=== PATIENT | female | born 1995 | race Two or more races ===

== ENCOUNTER 2016-06-28 19:25 | Emergency (ER) | payer MEDICAID, OTHER ==
[~2016-06-28] VITALS: Ht 174 cm; Wt 74.0 kg
[2016-06-28 19:30] VITALS: Ht 174 cm; Wt 74.0 kg
[2016-06-28] MEDS ORDERED: SOD CHLORIDE 0.9% 1,000 ML IV ONE (20:00)
[2016-06-28] MEDS ORDERED: SOD CHLORIDE 0.9% 1,000 ML IV STA (20:00)
[2016-06-28] MEDS ORDERED: ONDANSETRON 4 MG INJ IV STA (20:00)
[2016-06-28] MEDS ORDERED: DOXY1TAB3 PO (20:02)
[2016-06-28 21:01] LABS: ADD SCAN DIFF NO
[2016-06-28 21:12] LABS: BASOPHILS % 0.4 % (0.0-2.0); EOSINOPHILS # 0.1 10^3/ul (0.0-0.5); EOSINOPHILS % 1.9 % (0.0-7.0); HEMATOCRIT 31.9 % (37.0-47.0); HEMOGLOBIN 10.3 g/dl (12.0-16.0); LYMPHOCYTES # 2.1 10^3/ul (0.8-2.9); LYMPHOCYTES % 30.4 % (15.0-51.0); MEAN CORPUSCULAR HEMOGLOBIN 27.5 pg (29.0-33.0); MEAN CORPUSCULAR HGB CONC 32.3 g/dl (32.0-37.0); MEAN CORPUSCULAR VOLUME 85.3 fl (82.0-101.0); MEAN PLATELET VOLUME 11.3 fl (7.4-10.4); MONOCYTE # 0.5 10^3/ul (0.3-0.9); MONOCYTES % 6.7 % (0.0-11.0); NEUTROPHIL # 4.1 10^3/ul (1.6-7.5); NEUTROPHILS % 60.2 % (39.0-77.0); PLATELET COUNT 238 10^3/UL (140-415); RED BLOOD COUNT 3.74 10^6/ul (4.20-5.40); RED CELL DISTRIBUTION WIDTH 13.7 % (11.5-14.5); WHITE BLOOD COUNT 6.9 10^3/ul (4.8-10.8)
[2016-06-28 21:29] LABS: ALBUMIN 3.4 g/dl (3.3-4.9)
[2016-06-28 21:30] LABS: POTASSIUM 3.8 mmol/L (3.5-5.1)
[2016-06-28 21:32] LABS: ALBUMIN/GLOBULIN RATIO 0.77; BILIRUBIN,INDIRECT 0.3 mg/dl (0-1.1); BILIRUBIN,TOTAL 0.3 mg/dl (0.2-1.3); CREATININE 0.48 mg/dl (0.44-1.00); TOTAL PROTEIN 7.8 g/dl (6.1-8.1)
[2016-06-28 21:33] LABS: CALCIUM 8.4 mg/dl (8.4-10.2)
[2016-06-28 22:37] LABS: ADD UMIC YES; URINE BILIRUBIN (Dip) 1+ (NEGATIVE); URINE BLOOD (Dip) 1+ (NEGATIVE); URINE COLOR YELLOW (YELLOW); URINE GLUCOSE (Dip) NEGATIVE (NEGATIVE); URINE KETONES (Dip) 3+ (NEGATIVE); URINE LEUKOCYTE ESTERASE (Dip) TRACE (NEGATIVE); URINE NITRITE (Dip) NEGATIVE (NEGATIVE); URINE UROBILINOGEN (Dip) 0.2 E.U./dL (0.1-1.0)
[2016-06-28 22:54] LABS: ICTOTEST NEGATIVE (NEGATIVE); URINE TOTAL PROTEIN (Dip) NEGATIVE (NEGATIVE)
[2016-06-28 22:56] LABS: BACTERIA,URINE MODERATE; MUCUS,URINE MANY; SQUAMOUS EPITHELIAL CELL,UR MODERATE
--- NOTE | 2016-06-28 23:28 | ERD ---
ER Documentation Chief Complaint Date/Time DATE: 06/28/16 TIME: 23:22 Chief Complaint vomiting X2 days,from home,DESTINEE RA 81,7-1/2 wks HPI This is a 21-year-old female who is 7 weeks is complaining of 2-3 days of severe vomiting. The patient has a history of hyperemesis gravidarum and has been seen here in the past and given Zofran ODT and had a sonogram demonstrating a live IUP. Patient states that she is not able to tolerate any sips of water fluids for the past 2 days has had decreased urine output. She is having no abdominal cramps no vaginal bleeding no pelvic pain no back pain no dysuria. No blood or bile in her vomit. No abdominal pain. The patient has tried Zofran tablets and Zofran ODT and is also tried diclegis. ROS All systems reviewed and are negative except as per history of present illness. Medications Home Meds Reported Medications Doxylamine/Pyridoxine Hcl (LEMUEL OCHOA 10-10 MG TABLET) 1 Each Tablet.dr, 2 TAB PO QHS, TAB 06/28/16 Allergies Allergies: Coded Allergies: No Known Allergy (Unverified , 06/28/16) PMhx/Soc Medical and Surgical Hx: pt denies Medical Hx, pt denies Surgical Hx Hx Alcohol Use: No Hx Substance Use: No Hx Tobacco Use: No Smoking Status: Never smoker FmHx Family History: No coronary disease Physical Exam Vitals Vital Signs Date Time Temp Pulse Resp B/P Pulse Ox O2 Delivery O2 Flow Rate FiO2 06/28/16 22:09 99.6 76 17 122/78 100 Room Air 06/28/16 19:30 98.5 92 18 118/74 100 Physical Exam Const: Well-developed, well-nourished Head: Atraumatic, normocephalic Eyes: Normal Conjunctiva, PERRLA, EOMI, normal sclera, no nystagmus ENT: Normal External Ears, Nose and Mouth, moist mucus membranes. Neck: Full range of motion. No meningismus, no lymphadenopathy. Resp: Clear to auscultation bilaterally, no wheezing, rhonchi, rales Cardio: Regular rate and rhythm, no murmurs, S1 S2 present Abd: Soft, non tender x 4, non distended. Normal bowel sounds, no guarding or rebound, no pulsitile abdominal masses or bruits Skin: No petechiae or rashes, no ecchymosis , no maculopapular rash Back: No midline or flank tenderness Ext: No cyanosis, or edema, FROM x 4, normal inspection, neurovascularly intact x 4 Neur: Sleepy but arousable, STR 5/5 x 4, sensation intact x 4, no focal findings, cerebellum intact Psych: Normal Mood and Affect Result Diagram: 06/28/16205406/28/162054 Results 24 hrs Laboratory Tests Test 06/28/16 20:55 06/28/16 21:54 Alanine Aminotransferase (ALT/SGPT) 28IU/L Albumin 3.4g/dl Albumin/Globulin Ratio 0.77 Alkaline Phosphatase 56IU/L Anion Gap 16 Aspartate Amino Transf (AST/SGOT) 18IU/L Basophils # 0.010^3/ul Basophils % 0.4% Beta HCG, Quantitative 86421.0mIU/ml Blood Urea Nitrogen 9mg/dl Calcium Level 8.4mg/dl Carbon Dioxide Level 23mmol/L Chloride Level 104mmol/L Creatinine 0.48mg/dl Direct Bilirubin 0.00mg/dl Eosinophils # 0.110^3/ul Eosinophils % 1.9% Globulin 4.40g/dl Glucose Level 85mg/dl Hematocrit 31.9% Hemoglobin 10.3g/dl Indirect Bilirubin 0.3mg/dl Lymphocytes # 2.110^3/ul Lymphocytes % 30.4% Mean Corpuscular Hemoglobin 27.5pg Mean Corpuscular Hemoglobin Concent 32.3g/dl Mean Corpuscular Volume 85.3fl Mean Platelet Volume 11.3fl Monocytes # 0.510^3/ul Monocytes % 6.7% Neutrophils # 4.110^3/ul Neutrophils % 60.2% Nucleated Red Blood Cells # 0.010^3/ul Nucleated Red Blood Cells % 0.0/100WBC Platelet Count 14447^3/UL Potassium Level 3.8mmol/L Red Blood Count 3.7410^6/ul Red Cell Distribution Width 13.7% Sodium Level 139mmol/L Total Bilirubin 0.3mg/dl Total Protein 7.8g/dl White Blood Count 6.910^3/ul Urine Bacteria MODERATE Urine Bilirubin 1+ Urine Clarity CLOUDY Urine Color YELLOW Urine Glucose NEGATIVE% Urine Hemoglobin 1+ Urine Ictotest NEGATIVE Urine Ketones 3+ Urine Leukocyte Esterase TRACE Urine Microscopic RBC 5-10/HPF Urine Microscopic WBC 10-25/HPF Urine Mucus MANY Urine Nitrite NEGATIVE Urine Specific [place] 1.025 Urine Squamous Epithelial Cells MODERATE Urine Total Protein NEGATIVE Urine Urobilinogen 0.2 E.U./dL Urine pH 6.5 Current Medications Medications (Trade) Dose Ordered Sig/Nasreen Route PRN Reason Start Time Stop Time Status Last Admin Dose Admin Sodium Chloride 1,000 ml @ 1,000 mls/hr Q1H STAT IV 06/28/16 20:00 06/28/16 20:59 DC 06/28/16 21:00 Sodium Chloride (NS) 1,000 ml @ 1,000 mls/hr Q1H ONCE IV 06/28/16 20:00 06/28/16 20:59 DC 06/28/16 20:00 Ondansetron HCl 4 mg 4 mg ONCE STAT IV 06/28/16 20:00 06/28/16 20:04 DC 06/28/16 20:59 Dextrose/Lactated Ringer's (D5-Lr) 1,000 ml @ 1,000 mls/hr Q1H IV 06/28/16 23:30 Procedures/MDM Patient has a normal CMP. No evidence of acidosis or renal failure or dehydration on labs. She does have 3+ ketones and a contaminated urine specimen does show 10-25 white blood cells She has had 2 L of normal saline we will add 1 L of D5 LR. Spoke with labor is Dr. Vital who does not want to admit the patient due to normal chemistries. We will try Phenergan suppositories with Zofran ODT as well as Pepcid and some viscous lidocaine because the patient says her throat is so raw from repetitive vomiting. 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 After the IV fluids she is much more awake and is feeling a bit better. Departure Diagnosis: Primary Impression: Hyperemesis gravidarum Additional Impressions: UTI (urinary tract infection) Urinary tract infection type: site unspecified Hematuria presence: without hematuria Qualified Code: N39.0 - Urinary tract infection without hematuria, site unspecified Dyspepsia Condition: Stable MILA GIMENEZ DO Jun 28, 2016 23:28
[2016-06-28] MEDS ORDERED: FAMOTIDINE 20 MG INJ IV ONE (23:30)
[2016-06-28] MEDS ORDERED: PROMETHAZINE 25 MG SUPP PR ONE (23:30)
[2016-06-28] MEDS: DEXTROSE 5%-LR 1,000 ML IV SCH (23:35)
[2016-06-28] MEDS ORDERED: PROM25TA14 PR (23:40)
[2016-06-28] MEDS ORDERED: RANI150T9 PO (23:40)
[2016-06-28] MEDS ORDERED: ONDA8TAB14 PO (23:40)
[2016-06-28] MEDS ORDERED: LIDO20SO19 PO (23:40)
[2016-06-28] MEDS ORDERED: CEPH-443 PO (23:41)
[2016-06-29] MEDS: DEXTROSE 5%-LR 1,000 ML IV SCH (00:30)
[2016-06-29 01:59] VITALS: BP 108/66; PULSE 100; RESP 14; TEMP 99.4
== END 2016-06-29 02:30 | disposition home or self-care (01) ==
LOC: E/R 19:25
DX: O21.0 Mild hyperemesis gravidarum (principal); O23.41 Unspecified infection of urinary tract in pregnancy, first trimester; R10.13 Epigastric pain; O26.891 Other specified pregnancy related conditions, first trimester; Z3A.01 Less than 8 weeks gestation of pregnancy
CPT/HCPCS: 80053; 81001; 81003; 84702; 85025; 96374; 96375; J2405; J7030; J7121; Z7502; Z7610

== ENCOUNTER 2016-07-13 17:09 | Emergency (ER) | payer MEDICAID ==
[~2016-07-13] VITALS: Wt 68.0 kg
[~2016-07-13 17:09] MED LIST: CEPH-443 PO; DOXY1TAB3 PO; LIDO20SO19 PO; ONDA8TAB14 PO; PROM25TA14 PR; RANI150T9 PO
[2016-07-13] MEDS ORDERED: SOD CHLORIDE 0.9% 1,000 ML IV STA (17:29)
[2016-07-13] MEDS ORDERED: METOCLOPRAMIDE 10 MG INJ IV ONE (17:30)
[2016-07-13] MEDS ORDERED: DIPHENHYDRAMINE 50 MG INJ IV ONE (17:30)
[2016-07-13 17:54] LABS: ADD SCAN DIFF NO
[2016-07-13 17:57] LABS: BASOPHILS % 0.4 % (0.0-2.0); EOSINOPHILS # 0.1 10^3/ul (0.0-0.5); EOSINOPHILS % 0.6 % (0.0-7.0); HEMOGLOBIN 11.6 g/dl (12.0-16.0); LYMPHOCYTES # 2.4 10^3/ul (0.8-2.9); LYMPHOCYTES % 29.2 % (15.0-51.0); MEAN CORPUSCULAR HEMOGLOBIN 27.6 pg (29.0-33.0); MEAN CORPUSCULAR HGB CONC 33.1 g/dl (32.0-37.0); MEAN CORPUSCULAR VOLUME 83.3 fl (82.0-101.0); MEAN PLATELET VOLUME 11.6 fl (7.4-10.4); MONOCYTE # 0.5 10^3/ul (0.3-0.9); MONOCYTES % 5.6 % (0.0-11.0); NEUTROPHIL # 5.3 10^3/ul (1.6-7.5); NEUTROPHILS % 63.8 % (39.0-77.0); PLATELET COUNT 260 10^3/UL (140-415); RED CELL DISTRIBUTION WIDTH 13.8 % (11.5-14.5); WHITE BLOOD COUNT 8.2 10^3/ul (4.8-10.8)
[2016-07-13 18:06] LABS: POTASSIUM 3.6 mmol/L (3.5-5.1)
[2016-07-13 18:09] LABS: CREATININE 0.49 mg/dl (0.44-1.00)
[2016-07-13 18:10] LABS: CALCIUM 9.6 mg/dl (8.4-10.2)
[2016-07-13 18:47] LABS: URINE BLOOD (Dip) POC 1+ (NEGATIVE)
[2016-07-13] MEDS ORDERED: PREN1TAB79 PO (19:08)
[2016-07-13] MEDS ORDERED: CEPH-443 PO (19:08)
[2016-07-13] MEDS ORDERED: METO10TA92 PO (19:08)
--- NOTE | 2016-07-13 19:14 | ERD ---
ER Documentation Chief Complaint Date/Time DATE: 07/13/16 TIME: 19:10 Chief Complaint VOMITING FOR THE PAST FEW MONTHS. WT LOSS, 9 WKS PREG NO VAG BLEED HPI Patient is a 21-year-old female past medical history of GERD, who presents to the emergency department with nausea and vomiting 1 day. Patient states that she has vomited approximately 6-7 times today. Nonbloody nonbilious. Throughout her , patient has reported intermittent episodes of vomiting. She reports difficulty tolerating p.o. fluids. She states that she has tried taking Zofran with no alleviation of symptoms. Patient denies any fevers, chills, abdominal pain, chest pain, shortness of breath. Patient denies any abdominal pain, pelvic pain, vaginal bleeding, excessive vaginal discharge. 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 ROS All systems reviewed and are negative except as per history of present illness. Medications Home Meds Active Scripts Cephalexin* (Keflex*) 500 Mg Capsule, 500 MG PO QID for 7 Days, CAP Prov:SEEMA HOLLIDAY PA-C 07/13/16 Metoclopramide* (Reglan*) 10 Mg Tablet, 10 MG PO Q6 Y for NAUSEA AND/OR VOMITING , #20 TAB Prov:SEEMA HOLLIDAY PA-C 07/13/16 Vit W-Ca,Fe,FA(<1 mg) ( Vitamins) 1 Each Tablet, 1 EACH PO DAILY, #30 TAB Prov:SEEMA HOLLIDAY PA-C 07/13/16 Cephalexin* (Keflex*) 500 Mg Capsule, 500 MG PO QID for 7 Days, CAP Prov:MILA GIMENEZ DO 06/28/16 Lidocaine (Lidocaine Viscous) 100 Ml Soln, 15 ML PO q 2-3 hours for throat pain , #120 ML Prov:MILA GIMENEZ DO 06/28/16 Ranitidine Hcl* (Zantac*) 150 Mg Tablet, 150 MG PO BID, #30 TAB Prov:MILA GIMENEZ DO 06/28/16 Ondansetron (Ondansetron Odt) 8 Mg Tab.rapdis, 8 MG PO Q6H Y for NAUSEA AND/OR VOMITING, #20 TAB Prov:MILA GIMENEZ DO 06/28/16 Promethazine Hcl* (Phenergan*) 25 Mg Tablet, 25 MG MD Q6H Y for vomit, #14 TAB can insert 1/2 - 1 suppository Prov:MILA GIMENEZ DO 06/28/16 Reported Medications Doxylamine/Pyridoxine Hcl (LEMUEL OCHOA 10-10 MG TABLET) 1 Each Tablet.dr, 2 TAB PO QHS, TAB 06/28/16 Allergies Allergies: Coded Allergies: No Known Allergy (Unverified , 06/28/16) PMhx/Soc Medical and Surgical Hx: pt denies Medical Hx, pt denies Surgical Hx Hx Alcohol Use: No Hx Substance Use: No Hx Tobacco Use: No FmHx Family History: No diabetes Physical Exam Vitals Vital Signs Date Time Temp Pulse Resp B/P Pulse Ox O2 Delivery O2 Flow Rate FiO2 07/13/16 19:19 97.4 97/55 100 Room Air 07/13/16 17:13 98.8 88 20 120/72 100 Physical Exam GENERAL: Well-developed, well-nourished female. Appears tired. HEAD: Normocephalic, atraumatic. EYES: Pupils are equally reactive bilaterally. EOMs grossly intact. No conjunctival erythema. No conjunctival pallor. ENT: Moist mucous membranes. No uvula deviation. No kissing tonsils. NECK: Supple. No meningismus. Normal range of motion of the neck. LUNG: Clear to auscultation bilaterally. No rhonchi, wheezing, rales or coarse breath sounds. HEART: Regular rate and rhythm. No murmurs, rubs or gallops. ABDOMEN: No scars, ecchymosis or rashes noted. Soft, nontender, and nondistended. Positive bowel sounds in all four quadrants. No rebound tenderness , no guarding. (-) McBurney's point tenderness. No CVA tenderness. BACK: No midline tenderness. EXTREMITIES: Equal pulses bilaterally. No peripheral clubbing, cyanosis or edema. No unilateral leg swelling. NEUROLOGIC: Alert and oriented. Moving all four extremities without any difficulty. Normal speech. Steady gait. SKIN: Normal color. Warm and dry. No rashes or lesions. Result Diagram: 07/13/16173907/13/16 174 Results 24 hrs Laboratory Tests Test 07/13/16:40 07/13/16 18:45 Anion Gap 19 Basophils # 0.010^3/ul Basophils % 0.4% Blood Urea Nitrogen 7mg/dl Calcium Level 9.6mg/dl Carbon Dioxide Level 19mmol/L Chloride Level 105mmol/L Creatinine 0.49mg/dl Eosinophils # 0.110^3/ul Eosinophils % 0.6% Glucose Level 88mg/dl Hematocrit 35.0% Hemoglobin 11.6g/dl Lymphocytes # 2.410^3/ul Lymphocytes % 29.2% Mean Corpuscular Hemoglobin 27.6pg Mean Corpuscular Hemoglobin Concent 33.1g/dl Mean Corpuscular Volume 83.3fl Mean Platelet Volume 11.6fl Monocytes # 0.510^3/ul Monocytes % 5.6% Neutrophils # 5.310^3/ul Neutrophils % 63.8% Nucleated Red Blood Cells # 0.010^3/ul Nucleated Red Blood Cells % 0.0/100WBC Platelet Count 92039^3/UL Potassium Level 3.6mmol/L Red Blood Count 4.2010^6/ul Red Cell Distribution Width 13.8% Sodium Level 139mmol/L White Blood Count 8.210^3/ul Bedside Urine Blood 1+ Bedside Urine Glucose (UA) Negative Bedside Urine Ketones (LAB) 4+ Bedside Urine Leukocyte Esterase (L Trace Bedside Urine Nitrite (LAB) Negative Bedside Urine Protein (LAB) 2+ Bedside Urine pH (LAB) 7.0 Current Medications Medications (Trade) Dose Ordered Sig/Nasreen Route PRN Reason Start Time Stop Time Status Last Admin Dose Admin Sodium Chloride (NS) 1,000 ml @ 1,000 mls/hr Q1H STAT IV 07/13/16 17:29 07/13/16 18:28 DC 07/13/16 17:45 Metoclopramide HCl (Reglan) 10 mg ONCE ONCE IV 07/13/16 17:30 07/13/16 17:34 DC 07/13/16 17:45 Diphenhydramine HCl (Benadryl) 25 mg ONCE ONCE IV 07/13/16 17:30 07/13/16 17:34 DC 07/13/16 17:45 Procedures/MDM ED COURSE: The patient was stable throughout ED course. I kept the patient and/or family informed of laboratory and diagnostic imaging results throughout the ED course. MEDICATIONS GIVEN: IV fluids, Benadryl, Reglan Patient tolerated medication well with no adverse reactions. No additional episodes of vomiting were noted throughout ED course. MEDICAL DECISION MAKING: This is a MEDICAL DECISION MAKING: This is a 21-year-old female G2, P0 who presents with 6 episodes of vomiting today. Patient has had intermittent episodes of vomiting throughout her however today her symptoms were much worse. Vital signs were reviewed. Patient is afebrile. Abdominal exam was unremarkable. CBC showed a hemoglobin level of 11.6, hematocrit of 35. CBC showed no signs of systemic infection. BMP showed no evidence of severe electrolyte abnormalities, severe acidosis, alkalosis, renal failure. Patient's urine dip showed trace leukocyte esterase. Patient was given IV fluids, Benadryl, Reglan here in the emergency department. Patient reported improvement in symptoms. No additional episodes of vomiting were noted throughout ED course. At this time, patient's presentation is most consistent with hyperemesis during , UTI, anemia. I have a much lower clinical concern for acute coronary syndrome, DKA, bowel perforation, bowel obstruction, cholecystitis, diverticulitis, pyelonephritis, nephrolithiasis, appendicitis, constipation, PID , ovarian torsion or tubo-ovarian abscess. Low suspicion for hyperemesis gravidarum given that patient had no additional episodes of vomiting during ED course. Low suspicion for the patient requiring admission given that she has no electrolyte disturbances. PRESCRIPTIONS: Reglan, Keflex, vitamins DISCHARGE: At this time, patient is stable for discharge and outpatient management. Adequate hydration advised. I have instructed the patient to follow-up with his/ her primary care physician/OBGYN in 1-2 days. I have instructed the patient to promptly return to the ER at any time for any new or worsening symptoms including increased pain, nausea, vomiting, diarrhea, fever, weakness or LOC. The patient and/or family expressed understanding of and agreement with this plan. All questions were answered. Home care instructions were provided. Departure Diagnosis: Primary Impression: UTI (urinary tract infection) Urinary tract infection type: site unspecified Hematuria presence: with hematuria Qualified Code: N39.0 - Urinary tract infection with hematuria, site unspecified Additional Impression: Vomiting affecting Condition: Stable Patient Instructions: , Established, Normal Symptoms Referrals: [facility] Additional Instructions: Call your primary care doctor TOMORROW for an appointment during the next 1-2 days.See the doctor sooner or return here if your condition worsens before your appointment time. SEEMA HOLLIDAY PA-C Jul 13, 2016 19:13
[2016-07-13 19:19] VITALS: BP 97/55; TEMP 97.4
== END 2016-07-13 19:30 | disposition home or self-care (01) ==
LOC: FTE 17:09
DX: O23.41 Unspecified infection of urinary tract in pregnancy, first trimester (principal); Z3A.09 9 weeks gestation of pregnancy
CPT/HCPCS: 36415; 80048; 81003; 85025; 96374; 96375; J1200; J2765; J7030; Z7502

== ENCOUNTER 2016-09-10 03:05 | Emergency (ER) | payer MEDICAID, OTHER ==
[~2016-09-10] VITALS: Ht 172.7 cm; Wt 72.0 kg
[~2016-09-10 03:05] MED LIST changes: +METO10TA92 PO; +PREN1TAB79 PO
[2016-09-10 03:14] VITALS: Ht 172.7 cm; Wt 72.0 kg
[2016-09-10] MEDS ORDERED: LORAZEPAM 2 MG INJ IM ONE (03:30)
--- NOTE | 2016-09-10 03:43 | ERD ---
ER Documentation Chief Complaint Date/Time DATE: 09/10/16 TIME: 03:42 Chief Complaint HPI This is a 21-year-old female comes in with complaints of feeling anxious. She denies boyfriend. Denies any suicidal homicidal thoughts. Denies any other current complaints. ROS All systems reviewed and are negative except as per history of present illness. Medications Home Meds Active Scripts Cephalexin* (Keflex*) 500 Mg Capsule, 500 MG PO QID for 7 Days, CAP Prov:SEEMA HOLLIDAY-C 07/13/16 Metoclopramide* (Reglan*) 10 Mg Tablet, 10 MG PO Q6 Y for NAUSEA AND/OR VOMITING , #20 TAB Prov:SEEMA HOLLIDAY-C 07/13/16 Vit W-Ca,Fe,FA(<1 mg) ( Vitamins) 1 Each Tablet, 1 EACH PO DAILY, #30 TAB Prov:SEEMA HOLLIDAY-C 07/13/16 Cephalexin* (Keflex*) 500 Mg Capsule, 500 MG PO QID for 7 Days, CAP Prov:MILA GIMENEZ DO 06/28/16 Lidocaine (Lidocaine Viscous) 100 Ml Soln, 15 ML PO q 2-3 hours for throat pain , #120 ML Prov:MILA GIMENEZ DO 06/28/16 Ranitidine Hcl* (Zantac*) 150 Mg Tablet, 150 MG PO BID, #30 TAB Prov:MILA GIMENEZ DO 06/28/16 Ondansetron (Ondansetron Odt) 8 Mg Tab.rapdis, 8 MG PO Q6H Y for NAUSEA AND/OR VOMITING, #20 TAB Prov:MILA GIMENEZ DO 06/28/16 Promethazine Hcl* (Phenergan*) 25 Mg Tablet, 25 MG HI Q6H Y for vomit, #14 TAB can insert 2 - 1 suppository Prov:MILA GIMENEZ DO 06/28/16 Reported Medications Doxylamine/Pyridoxine Hcl (LEMUEL OCHOA 10-10 MG TABLET) 1 Each Tablet.dr, 2 TAB PO QHS, TAB 06/28/16 Allergies Allergies: Coded Allergies: No Known Allergy (Unverified , 06/28/16) PMhx/Soc Medical and Surgical Hx: pt denies Medical Hx, pt denies Surgical Hx History of Surgery: No Anesthesia Reaction: No Hx Neurological Disorder: No Hx Respiratory Disorders: No Hx Cardiac Disorders: No Hx Psychiatric Problems: No Hx Miscellaneous Medical Probl: No Hx Alcohol Use: No Hx Substance Use: No Hx Tobacco Use: No Smoking Status: Never smoker Physical Exam Vitals Vital Signs Date Time Temp Pulse Resp B/P Pulse Ox O2 Delivery O2 Flow Rate FiO2 09/10/16 03:14 98.6 121 26 107/69 100 Physical Exam Const: [] Head: Atraumatic Eyes: Normal Conjunctiva ENT: Normal External Ears, Nose and Mouth. Neck: Full range of motion..~ No meningismus. Resp: Clear to auscultation bilaterally Cardio: Regular rate and rhythm, no murmurs Abd: Soft, non tender, non distended. Normal bowel sounds Skin: No petechiae or rashes Back: No midline or flank tenderness Ext: No cyanosis, or edema Neur: Awake and alert Psych: Normal Mood and Affect Results 24 hrs Current Medications Medications (Trade) Dose Ordered Sig/Nasreen Route PRN Reason Start Time Stop Time Status Last Admin Dose Admin Lorazepam (Ativan) 1 mg ONCE ONCE IM 09/10/16 03:30 09/10/16 03:31 DC Procedures/MDM Medical decision: Patient is on anxiety. At this point clinically stable. Discharged home. Told to return for any return of symptoms. Departure Diagnosis: Primary Impression: Anxiety Condition: Stable LES LYNN September 10, 2016 03:43
[2016-09-10 04:01] VITALS: BP 124/75; PULSE 100; RESP 16; TEMP 98.4
== END 2016-09-10 04:00 | disposition home or self-care (01) ==
LOC: E/R 03:05
DX: F41.9 Anxiety disorder, unspecified (principal); R40.2252 Coma scale, best verbal response, oriented, at arrival to emergency department; R40.2142 Coma scale, eyes open, spontaneous, at arrival to emergency department; R40.2362 Coma scale, best motor response, obeys commands, at arrival to emergency department
CPT/HCPCS: 99282; J2060